=== PATIENT | female | born 1965 | race African-American/Black ===

== ENCOUNTER 2017-04-12 15:21 | Observation (INO) | payer OTHER ==
[~2017-04-12] VITALS: Ht 175.3 cm; Wt 104.0 kg
[~2017-04-12 15:21] MED LIST: BETA0.052 TOPICAL; CITA20TA4 PO; DEXAMETHASONE SOD PHOS 4 MG/ML VIAL IV PUSH ONE; FLUT50SP EACH NARE; GLYCOPYRROLATE 1 MG/5 ML SYRINGE IV PUSH ONE; LIDOCAINE HCL 1% PF 5 ML SYRINGE OTHER ONE; MEDR4PAK PO; METO25TA3 PO; MONT10TA4 PO; NEOSTIGMINE 5 MG/5 ML SYRINGE IV PUSH ONE; ONDANSETRON HCL 4 MG/2 ML VIAL IV PUSH ONE; PROPOFOL 200 MG/20 ML AMP IV ONE; ROCURONIUM INJ 50 MG/5 ML SYRINGE IV PUSH ONE; SUCCINYLCHOLINE CHLORIDE 100 MG/5 ML SYRINGE IV PUSH ONE; TOPI100 PO; ZOLP10TA3 PO
[2017-04-12 15:26] VITALS: BP 161/72; PULSE 82; TEMP 99.3; O2SAT 97
[2017-04-12] MEDS ORDERED: HYDR-3583 PO (15:47)
[2017-04-12] MEDS ORDERED: LEVO100T5 PO (15:47)
[2017-04-12] MEDS ORDERED: ONDANSETRON HCL 4 MG/2 ML VIAL IV PUSH ONE (16:45)
[2017-04-12] MEDS ORDERED: MORPHINE SULFATE 2 MG/ML INJ IV PUSH ONE ×2 (16:45→18:15)
[2017-04-12] MEDS ORDERED: IOHEXOL 350 MG/ML 10 ML VIAL (for RAD DIAG) IVCONTRAST ONE (17:05)
[2017-04-12 17:42] LABS: ALT (GPT) 20 U/L (10-53)
[2017-04-12 17:44] LABS: ALKALINE PHOSPHATASE 74 U/L (45-117); TOTAL BILIRUBIN ADULT 0.3 MG/DL (0.2-1.0); TOTAL PROTEIN 8.1 GM/DL (6.4-8.2)
[2017-04-12 17:46] LABS: ALBUMIN 3.3 GM/DL (3.4-5.0); AST (GOT) 23 U/L (15-37); BICARBONATE 22.1 MEQ/L (21.0-32.0); BLOOD UREA NITROGEN 8 MG/DL (7-18); CALCIUM 8.3 MG/DL (8.5-10.1); CHLORIDE 108 MEQ/L (98-107); CREATININE 0.71 MG/DL (0.50-1.00); GLOMERULAR FILTRATION RATE 104 ML/MIN (>89); GLUCOSE,RANDOM 85 MG/DL (74-106); LIPASE 113 U/L (73-393); SODIUM (NA) 137 MEQ/L (136-145)
--- NOTE | 2017-04-12 17:52 | RADRPT ---
EXAM DATE/TIME: 04/12/2017 17:05 [place] COMPARISON: No previous studies available for comparison. INDICATIONS : Right lower quadrant pain for two days IV CONTRAST: 81 cc Omnipaque 350 (iohexol) IV ORAL CONTRAST: No oral contrast ingested. RADIATION DOSE: 9.40 CTDIvol (mGy) MEDICAL HISTORY : Cardiovascular disease. Hypertension. Chronic obstructive pulmonary disease.Sarcoidosis SURGICAL HISTORY : None. ENCOUNTER: Initial ACUITY: 2 days PAIN SCALE: 7/10 LOCATION: Right Abdomen TECHNIQUE: Volumetric scanning of the abdomen and pelvis was performed. Using automated exposure control and ad justment of the mA and/or kV according to patient size, radiation dose was kept as low as reasonably achievable to obtain optimal diagnostic quality images. DICOM format image data is available electro nically for review and comparison. FINDINGS: CT Abdomen: The liver, spleen, pancreas, kidneys, adrenals are unremarkable. There is no evidence for any appreciable pathological adenopathy, free fluid, or bowel obstruction. Mild right lung base ate lectasis and/or infiltrate is seen. There are 3 small lymph nodes in the right cardiophrenic angle th e largest one is some xiphoid measures 1.4 cm in size most likely benign. CT pelvis: There is inflammation surrounding the appendix which is enlarged and measures almost 1.8 c m in transverse diameter without signs of perforation or abscess formation technique. CONCLUSION: 1. Acute appendicitis. 2. Mild right lung base atelectasis and/or infiltrate is seen. Yarely Baker MD on April 12, 2017 at 17:45 Board Certified Radiologist. This report was verified electronically.
[2017-04-12 17:54] LABS: AUTOMATED NEUTROPHIL # 5.5 TH/MM3 (1.8-7.7); BASOPHIL # 0.1 TH/MM3 (0-0.2); BASOPHIL % 1.1 % (0.0-2.0); EOSINOPHIL % 0.4 % (0.0-4.0); HEMATOCRIT 36.2 % (35.0-46.0); HEMOGLOBIN 12.2 GM/DL (11.6-15.3); LYMPH % 33.9 % (9.0-44.0); LYMPHOCYTE # 3.1 TH/MM3 (1.0-4.8); MEAN CELL VOLUME 89.3 FL (80.0-100.0); MEAN CORPUSCULAR HEMOGLOBIN 30.2 PG (27.0-34.0); MEAN CORPUSCULAR HGB CONC 33.8 % (32.0-36.0); MEAN PLATELET VOLUME 8.1 FL (7.0-11.0); MONOCYTE # 0.4 TH/MM3 (0-0.9); NEUT % 60.6 % (16.0-70.0); PLATELET COUNT 326 TH/MM3 (150-450); RED BLOOD COUNT 4.05 MIL/MM3 (4.00-5.30); RED CELL DISTRIBUTION WIDTH 14.2 % (11.6-17.2); WHITE BLOOD COUNT 9.1 TH/MM3 (4.0-11.0)
[2017-04-12 18:10] VITALS: BP 140/83; PULSE 73; RESP 18; O2SAT 99
[2017-04-12] MEDS ORDERED: PIPERACIL-TAZO 3.375 GM PREMIX 50 ML IV ONE (18:15)
[2017-04-12] MEDS ORDERED: BUPIVACAINE/EPINEPHRINE 0.5% 50 ML VIAL ONE (18:45)
[2017-04-12 18:49] VITALS: BP 130/61
--- NOTE | 2017-04-12 19:21 | PD ---
HPI Chief Complaint: Abdominal Pain Time Seen by Provider: 15:51 Travel History International Travel<30 days: No Contact w/Intl Traveler<30days: No Traveled to known affect area: No History of Present Illness HPI This is a 51-year-old female who presents to the emergency department with 3 days of abdominal pain and vomiting. She says 3 days ago she started to have pain in the epigastrium, constant, severe and sharp, nonradiating associated with multiple episodes of vomiting. She denies any fevers or chills. She says the pain has slowly migrated towards the right lower abdomen but she still has a lot of pain in the upper abdomen early one vomiting. She went to see her primary care doctor today who referred her to be evaluated for possible appendicitis. She's also had some loose stools. PFSH Past Medical History Asthma: No Autoimmune Disease: Yes (SARCOIDOSIS) Blood Disorders: No Heart Rhythm Problems: Yes Cancer: No Cardiac Catheterization: Yes (2005- "NO PROBLEMS") Cardiovascular Problems: Yes (tachycardia) High Cholesterol: No Chest Pain: Yes Congestive Heart Failure: No COPD: Yes Cerebrovascular Accident: No Diabetes: No Diminished Hearing: No Endocrine: No Gastrointestinal Disorders: Yes GERD: Yes Glaucoma: No Genitourinary: No Headaches: Yes Hepatitis: No Hiatal Hernia: No Hypertension: Yes Immune Disorder: No Musculoskeletal: Yes Neurologic: Yes Psychiatric: No Reproductive: No Respiratory: Yes (COPD) Migraines: Yes Myocardial Infarction: No Seizures: Yes Sleep Apnea: No Thyroid Disease: No Ulcer: No Tetanus Vaccination: > 5 Years Influenza Vaccination: No ?: Not : 4 Para: 3 Miscarriage: 1 : 0 Past Surgical History Abdominal Surgery: No AICD: No Appendectomy: No Arteriovenous Shunt: No Cardiac Surgery: Yes (CARDIAC CATH X 2) Cholecystectomy: No Ear Surgery: No Endocrine Surgery: Yes (THYROID BIOPSY -NEGATIVE 2002) Eye Surgery: No Genitourinary Surgery: No Gynecologic Surgery: Yes (TUBAL) Insulin Pump: No Joint Replacement: No Oral Surgery: No Thoracic Surgery: Yes (TRAVIS BIOPSY WITH DX OF SARCOIDOSIS) Other Surgery: Yes Social History Alcohol Use: Yes (3 X A MONTH) Tobacco Use: No Substance Use: No Allergies-Medications (Allergen,Severity, Reaction): Coded Allergies: tramadol (Unverified Allergy, Intermediate, sizesures , 04/12/17) Reported Meds & Prescriptions Reported Meds & Active Scripts Active Citalopram (Citalopram Hydrobromide) 20 Mg Tab 20 Mg PO DAILY Montelukast (Montelukast Sodium) 10 Mg Tab 10 Mg PO HS Zolpidem (Zolpidem Tartrate) 10 Mg Tab 10 Mg PO HS PRN Metoprolol Tartrate 25 Mg Tab 25 Mg PO DAILY Topamax (Topiramate) 100 Mg Tab 100 Mg PO BID Betamethasone Dipropionate Topical 0.05% Cream 1 Applic TOPICAL BID Apply once daily; may increase to twice daily if needed Medrol Dosepak (Methylprednisolone) 4 Mg Dspk 4 Mg PO DIRECTED Per Pharmacist direction Fluticasone Nasal [place] 50 Mcg/Act Naspr 50 Mcg EACH NARE BID 2 sprays per nostril once per day for one week, then 1 spray per nostril daily. Reported Hydrocodone-Acetaminophen 10-325 mg Tab 1 Tab PO Q6H PRN Levothyroxine (Levothyroxine Sodium) 100 Mcg Tab 100 Mcg PO DAILY Review of Systems Except as stated in HPI: all other systems reviewed are Neg Physical Exam Narrative GENERAL:Well appearing, no acute distress SKIN: Focused skin assessment warm and dry. HEAD: Atraumatic. Normocephalic. EYES: Pupils equal and round. No injection or drainage. ENT: Moist mucous membranes NECK: Trachea midline. CARDIOVASCULAR: Regular rate and rhythm. No murmur appreciated. RESPIRATORY: Clear to auscultation. Breath sounds equal bilaterally. GASTROINTESTINAL: Abdomen soft, tender to palpation in the right lower quadrant with guarding, tender to palpation in the epigastrium with no rebound or guarding MUSCULOSKELETAL: No obvious deformities. NEUROLOGICAL: Awake and alert. No obvious cranial nerve deficits. Moving all extremities. PSYCHIATRIC: Appropriate mood and affect; insight and judgment normal. Data Data Last Documented VS Vital Signs Date Time Temp Pulse Resp B/P (MAP) Pulse Ox O2 Delivery O2 Flow Rate FiO2 04/12/17 18:10 73 18 140/83 (102) 99 Room Air 04/12/17 15:26 99.3 Orders Orders Complete Blood Count With Diff (04/12/17 16:42) Comprehensive Metabolic Panel (04/12/17 16:42) ^ Insert Iv (04/12/17 16:42) Lipase (04/12/17 16:42) Ct Abd/Pel W Iv Contrast(Rout) (04/12/17 ) Ondansetron Inj (Zofran Inj) (04/12/17 16:45) Morphine Inj (Morphine Inj) (04/12/17 16:45) Morphine Inj (Morphine Inj) (04/12/17 18:15) Piperacil-Tazo 3.375 Gm Premix (Zosyn 3. (04/12/17 18:15) Admit Order (Ed Use Only) (04/12/17 18:13) Labs Laboratory Tests Test 04/12/17 16:45 04/12/17 17:40 Blood Urea Nitrogen 8 MG/DL Creatinine 0.71 MG/DL Random Glucose 85 MG/DL Total Protein 8.1 GM/DL Albumin 3.3 GM/DL Calcium Level 8.3 MG/DL Alkaline Phosphatase 74 U/L Aspartate Amino Transf (AST/SGOT) 23 U/L Alanine Aminotransferase (ALT/SGPT) 20 U/L Total Bilirubin 0.3 MG/DL Sodium Level 137 MEQ/L Potassium Level 4.0 MEQ/L Chloride Level 108 MEQ/L Carbon Dioxide Level 22.1 MEQ/L Anion Gap 7 MEQ/L Estimat Glomerular Filtration Rate 104 ML/MIN Lipase 113 U/L White Blood Count 9.1 TH/MM3 Red Blood Count 4.05 MIL/MM3 Hemoglobin 12.2 GM/DL Hematocrit 36.2 % Mean Corpuscular Volume 89.3 FL Mean Corpuscular Hemoglobin 30.2 PG Mean Corpuscular Hemoglobin Concent 33.8 % Red Cell Distribution Width 14.2 % Platelet Count 326 TH/MM3 Mean Platelet Volume 8.1 FL Neutrophils (%) (Auto) 60.6 % Lymphocytes (%) (Auto) 33.9 % Monocytes (%) (Auto) 4.0 % Eosinophils (%) (Auto) 0.4 % Basophils (%) (Auto) 1.1 % Neutrophils # (Auto) 5.5 TH/MM3 Lymphocytes # (Auto) 3.1 TH/MM3 Monocytes # (Auto) 0.4 TH/MM3 Eosinophils # (Auto) 0.0 TH/MM3 Basophils # (Auto) 0.1 TH/MM3 CBC Comment DIFF FINAL Differential Comment MDM Medical Decision Making Medical Screen Exam Complete: Yes Emergency Medical Condition: Yes Interpretation(s) No leukocytosis Electrolytes are reassuring CT demonstrates acute appendicitis Differential Diagnosis Appendicitis, colitis, diverticulitis, gastroenteritis Narrative Course This is a 51-year-old female who presents to the emergency department with abdominal pain that migrated to the right lower quadrant associated with vomiting. She was placed on a monitor and an IV was established. Labs are reassuring. CT abdomen and pelvis demonstrates acute appendicitis. Patient was given a dose of IV Zosyn in the emergency department. I discussed patient with Dr. barry who will take the patient to surgery. Physician Communication Physician Communication Discussed with Dr. barry Diagnosis Primary Impression: Acute appendicitis Qualified Codes: K35.3 - Acute appendicitis with localized peritonitis Admitting Information Admitting Physician Requests: Observation Esther Bower MD Apr 12, 2017 19:21
[2017-04-12 20:30] VITALS: BP 140/84; PULSE 74; PULSE 77; RESP 16; TEMP 98.6; O2SAT 99
[2017-04-12] MEDS ORDERED: MORPHINE SULFATE 4 MG/ML INJ IV PUSH ONE (20:30)
[2017-04-12] MEDS ORDERED: fentaNYL CITRATE 250 MCG/5 ML AMP ONE (21:10)
[2017-04-12] MEDS ORDERED: SUGAMMADEX SODIUM 200 MG/2 ML VIAL IV PUSH ONE (22:36)
--- NOTE | 2017-04-12 22:37 | HHI.HP ---
General Surgery H&P The patient is a 51-year-old lady who began having abdominal pain associated with nausea and vomiting on Monday approximate 48 hours ago. She had several episodes of emesis and the abdominal pain was extremely severe. The pain continued into Monday but the nausea and vomiting subsided. The pain was worse over the next 24 hours leading into today. She had increasing pain when walking and eventually came to her physician who recommended a CT scan through the emergency department. She was then at that time found to have acute appendicitis. Past medical history: Patient has a history of sarcoidosis, Matthieu's thyroiditis, tachycardia, COPD, and seizure disorder. Past surgical history: Patient is had a previous tubal ligation, lung biopsy, and thyroidectomy. Family history, social history, and review of systems are negative except as indicated in her chart. Medications include: Citalopram (Citalopram Hydrobromide) 20 Mg Tab 20 Mg PO DAILY Montelukast (Montelukast Sodium) 10 Mg Tab 10 Mg PO HS Zolpidem (Zolpidem Tartrate) 10 Mg Tab 10 Mg PO HS PRN Metoprolol Tartrate 25 Mg Tab 25 Mg PO DAILY Topamax (Topiramate) 100 Mg Tab 100 Mg PO BID Betamethasone Dipropionate Topical 0.05% Cream 1 Applic TOPICAL BID Apply once daily; may increase to twice daily if needed Medrol Dosepak (Methylprednisolone) 4 Mg Dspk 4 Mg PO DIRECTED Per Pharmacist direction Fluticasone Nasal [place] 50 Mcg/Act Naspr 50 Mcg EACH NARE BID 2 sprays per nostril once per day for one week, then 1 spray per nostril daily. Hydrocodone-Acetaminophen 10-325 mg Tab 1 Tab PO Q6H PRN Levothyroxine (Levothyroxine Sodium) 100 Mcg Tab 100 Mcg PO DAILY She has no known drug allergies but is unable to take tramadol due to the possibility of seizures. Vital Signs Date Time Temp Pulse Resp B/P (MAP) Pulse Ox O2 Delivery O2 Flow Rate FiO2 04/12/17 20:30 98.3 77 16 131/70 (90) 97 04/12/17 20:30 77 04/12/17 20:30 98.6 74 16 140/84 (102) 99 Room Air 04/12/17 18:49 86 16 130/61 (84) 98 04/12/17 18:10 73 18 140/83 (102) 99 Room Air 04/12/17 15:43 18 04/12/17 15:26 99.3 82 161/72 (101) 97 Room Air HEENT: Unremarkable with no lesions inflammation, or scleral icterus. LUNGS: Clear to percussion auscultation HEART: Regular rate and rhythm ABDOMEN: Exquisitely tender in the right lower quadrant with voluntary guarding and percussive rebound located only in the right lower quadrant. The remainder of her abdominal exam is benign. EXTREMITIES: No cyanosis clubbing or edema. Peripheral pulses are 1-2+ and equal bilaterally. NEURO: Patient is awake and alert and oriented 3. There are no gross neurologic deficits. Laboratory Tests Test 04/12/17 16:45 04/12/17 17:40 Blood Urea Nitrogen 8 MG/DL Creatinine 0.71 MG/DL Random Glucose 85 MG/DL Total Protein 8.1 GM/DL Albumin 3.3 GM/DL Calcium Level 8.3 MG/DL Alkaline Phosphatase 74 U/L Aspartate Amino Transf (AST/SGOT) 23 U/L Alanine Aminotransferase (ALT/SGPT) 20 U/L Total Bilirubin 0.3 MG/DL Sodium Level 137 MEQ/L Potassium Level 4.0 MEQ/L Chloride Level 108 MEQ/L Carbon Dioxide Level 22.1 MEQ/L Anion Gap 7 MEQ/L Estimat Glomerular Filtration Rate 104 ML/MIN Lipase 113 U/L White Blood Count 9.1 TH/MM3 Red Blood Count 4.05 MIL/MM3 Hemoglobin 12.2 GM/DL Hematocrit 36.2 % Mean Corpuscular Volume 89.3 FL Mean Corpuscular Hemoglobin 30.2 PG Mean Corpuscular Hemoglobin Concent 33.8 % Red Cell Distribution Width 14.2 % Platelet Count 326 TH/MM3 Mean Platelet Volume 8.1 FL Neutrophils (%) (Auto) 60.6 % Lymphocytes (%) (Auto) 33.9 % Monocytes (%) (Auto) 4.0 % Eosinophils (%) (Auto) 0.4 % Basophils (%) (Auto) 1.1 % Neutrophils # (Auto) 5.5 TH/MM3 Lymphocytes # (Auto) 3.1 TH/MM3 Monocytes # (Auto) 0.4 TH/MM3 Eosinophils # (Auto) 0.0 TH/MM3 Basophils # (Auto) 0.1 TH/MM3 CBC Comment DIFF FINAL Differential Comment Last 72 hours Impressions Abdomen/Pelvis CT 04/12/17 0000 Signed Impressions: Service Date/Time: Wednesday, April 12, 2017 17:05 - CONCLUSION: 1. Acute appendicitis. 2. Mild right lung base atelectasis and/or infiltrate is seen. Yarely Baker MD Impression: Acute appendicitis Plan: Laparoscopic appendectomy. I explained the procedure to include the risks of bleeding, infection, need for reoperation, need for open operation. She understands and is agreeable to the procedure. Bin Wynn MD Apr 12, 2017 22:37
--- NOTE | 2017-04-12 22:42 | PD.OP ---
cc: Bin Wynn MD Operative Report Date of Surgery: Apr 12, 2017 Preoperative Diagnosis: Acute appendicitis Postoperative Diagnosis: Acute appendicitis Procedure: Laparoscopic appendectomy Anesthesia: Gen. endotracheal Surgeon: Bin Wynn Farm Equipment Technician(s): None Operation and Findings: Operative findings: The patient was found to have a tortuous appendix which was located lateral to the cecum in the mid abdomen. It was nonperforated and there was no evidence of gross contamination. There was grossly distended at its tip with the base being relatively normal. No other abnormalities were noted other than adhesions between the anterior surface the liver and the right anterior abdominal wall. Operative procedure: The patient was brought to the operating room after satisfactory general endotracheal anesthesia obtained, the abdomen was prepped and draped in usual sterile fashion. 0.5% Marcaine with epinephrine was used to infiltrate the skin for local anesthesia. Small incision was made above the umbilicus and a 5 mm trochars inserted directly into the peritoneal cavity under visualization. The abdomen was then distended to 15 mmHg using carbon dioxide. The camera was reinserted and visceral injury inspected for, with none being identified. Under direct visualization a 12 port was placed in the suprapubic region and another 5 port in the in the midline between the 2 previous ports. The patient was rotated the left lateral decubitus position as much as possible and the appendix was identified and grasped with an Endo Jorge L. It was elevated into the wound and the mesoappendix was taken down with the Harmonic scalpel. Once the base of the appendix and been cleared it was stapled with a 45 white load stapler and placed within an Endo Catch bag, then removed without incident. The staple line was inspected and found to be intact. Hemostasis was checked for and found be quite satisfactory. The area was irrigated with saline and again the appendiceal stump and hemostasis was checked for and found be satisfactory. The carbon dioxide was then vented as completely as possible the atmosphere after which the ports were removed and the skin closed with interrupted 4-0 PDS subcutaneous stitches. Steri-Strips were applied and the patient was then awakened and taken from the operating room , satisfactory condition, having tolerated procedure without problem. Estimated blood loss was less than 10 mL's. The instrument, sponge, needle counts reported as being correct 2 at the end of procedure. Bin Wynn MD Apr 12, 2017 22:42
[2017-04-12] MEDS ORDERED: *morphine SULFATE 8 MG/ML PERIprocedure ONLY ONE (23:04)
[2017-04-12] MEDS ORDERED: MORPHINE SULFATE 2 MG/ML INJ IV PRN ×2 (23:15)
[2017-04-12] MEDS ORDERED: ONDANSETRON HCL 4 MG/2 ML VIAL IV PUSH PRN (23:15)
[2017-04-12] MEDS ORDERED: oxyCODONE/ACETAMINOPHEN 5 MG/325 MG TAB PO PRN (23:15)
[2017-04-12] MEDS ORDERED: KETOROLAC TROMETHAMINE 30 MG/ML (IVP) VIAL IV PUSH ONE (23:15)
[2017-04-12] MEDS ORDERED: DO NOT ADM ANY ANTICOAGULANT DRUGS PRN (23:15)
[2017-04-13] MEDS: oxyCODONE/ACETAMINOPHEN 5 MG/325 MG TAB PO PRN ×4 (00:02→14:55)
[2017-04-13 00:15] VITALS: BP 110/55; PULSE 70; RESP 17; TEMP 98.8; O2SAT 95
[2017-04-13] MEDS ORDERED: ZOLPIDEM TARTRATE 10 MG TAB PO PRN (01:15)
[2017-04-13] MEDS: TOPIRAMATE 100 MG TAB PO SCH ×2 (04:19→18:47)
[2017-04-13 04:36] VITALS: BP 117/59; PULSE 82; RESP 17; TEMP 96.6; O2SAT 95
[2017-04-13] MEDS ORDERED: LEVOTHYROXINE SODIUM 100 MCG TAB PO SCH (06:00)
[2017-04-13 08:00] VITALS: BP 114/61; PULSE 72; RESP 17; TEMP 97.4; O2SAT 96
[2017-04-13] MEDS ORDERED: CITALOPRAM HYDROBROMIDE 20 MG TAB PO SCH (09:00)
[2017-04-13] MEDS ORDERED: METOPROLOL TARTRATE 25 MG TAB PO SCH (09:00)
[2017-04-13 12:00] VITALS: BP 111/53; PULSE 70; RESP 17; TEMP 97; O2SAT 95
[2017-04-13 16:57] VITALS: BP 132/65; PULSE 74; RESP 17; TEMP 96.1; O2SAT 98
[2017-04-13] MEDS ORDERED: KETO10 PO (18:58)
[2017-04-13 23:38] VITALS: BP 156/83; PULSE 100; RESP 22; TEMP 96.5; O2SAT 97
--- NOTE | 2017-04-14 23:35 | EKG ---
Date Performed: 04/12/2017 Time Performed: 20:37:58 PTAGE: 51 years EKG: Sinus rhythm RIGHT BUNDLE BRANCH BLOCK ABNORMAL ECG PREVIOUS TRACING : 07/07/2013 11.55 DOCTOR: Victorino Camarena Interpretating Date/Time 04/14/2017 23:33:16
== END 2017-04-13 19:20 | disposition home or self-care (01) ==
LOC: NEPE 15:21 → NEDA 18:15 → N07B 20:40 → N07A 23:43
PROVIDERS: ADMIT Surgery; ATTEND Surgery
DX: K35.3 Acute appendicitis with localized peritonitis (principal); D86.9 Sarcoidosis, unspecified; R00.0 Tachycardia, unspecified; J44.9 Chronic obstructive pulmonary disease, unspecified; K21.9 Gastro-esophageal reflux disease without esophagitis; I10 Essential (primary) hypertension; Z79.899 Other long term (current) drug therapy; J98.11 Atelectasis
CPT/HCPCS: 00840; 44970; 74177; 80053; 83690; 85025; 88304; 93005; 96374; 96375; 96376; 99285; G0378; J0330; J1100; J2270; J2405; J2543; J2710; J3010; Q9967

== ENCOUNTER 2018-05-27 07:30 | Observation (INO) ==
--- NOTE | 2018-05-27 08:47 | ED ---
HPI General Chief Complaint: Chest Pain Stated Complaint: Chest Pain Time Seen by Provider: 05/27/18 08:32 Source: patient Mode of arrival: ambulatory Limitations: no limitations History of Present Illness HPI narrative: 52-year-old female complains of chest pain. Patient states that the pain started 4 days ago. Patient stated pain is substernal pressure pain with radiation to left-sided face and left shoulder. Patient denies palpitations. Patient states that she has intermittent nausea. Patient denies diaphoresis. Patient states that she has some mild shortness of breath with the chest pain. Patient states that pain is not associate with exertion. Patient states that she has mild swelling of the ankle and feet recently. Patient states that she has mild aching headache. Patient denies history hypertension, diabetes or hyperlipidemia. Patient is a former smoker. Patient has family history of heart disease. Patient has history of depression, tachycardia, COPD and hypothyroidism. MD complaint: Reports chest pain STEMI Alert: No Onset (ago): day(s) Duration: constant Onset: during rest Pain location: Reports substernal Severity: mild Severity scale (1-10): 5 Quality: Reports tightness and aching Pain radiation: Reports LUE and jaw/teeth Relieving factors: nothing Exacerbating factors: nothing Associated symptoms: Reports nausea and dyspnea Related Data Home Medications Medication Instructions Recorded Confirmed albuterol sulfate [Ventolin HFA] 2 puff INHALATION Q6H PRN 05/27/18 05/27/18 citalopram 20 mg PO DAILY 05/27/18 05/27/18 levothyroxine 88 mcg PO DAILY 05/27/18 05/27/18 liothyronine 5 mcg PO DAILY 05/27/18 05/27/18 metoprolol tartrate 25 mg PO DAILY 05/27/18 05/27/18 salmeterol 1 inh INHALATION BID 05/27/18 05/27/18 topiramate 50 mg PO BID 05/27/18 05/27/18 Allergies Allergy/AdvReac Type Severity Reaction Status Date / Time tramadol Allergy Intermediate Seizures Verified 05/27/18 09:28 Review of Systems ROS: all other systems reviewed are negative [facility] Medical History Medical History COPD (chronic obstructive pulmonary disease) (Acute) Chronic back pain (Acute) Depression (Acute) Herniated disc (Acute) Hypothyroidism (Acute) Tachycardia (Acute) Surgical History Surgical History H/O thyroidectomy (Acute) Hx of appendectomy (Acute) Social History Social History Substance History: No History of Abuse Second Hand Smoke Exposure: No Smoking Status: Former smoker How Often Do You Have a Drink Containing Alcohol: Never Recent Travel in [facility] within the Last 8 Weeks: No Recent Out of Country Travel within the Last 8 Weeks: No Immunization History Tetanus Immunization: Unsure Exam Narrative Exam Narrative: GENERAL: Well-nourished, well-developed patient. SKIN: Focused skin assessment warm/dry. HEAD: Normocephalic. EYES: No scleral icterus. No injection or drainage. NECK: Supple, trachea midline. No JVD or lymphadenopathy. CARDIOVASCULAR: Regular rate and rhythm without murmurs, gallops, or rubs. RESPIRATORY: Breath sounds equal bilaterally. No accessory muscle use. GASTROINTESTINAL: Abdomen soft, non-tender, nondistended. MUSCULOSKELETAL: No cyanosis, or edema. BACK: Nontender without obvious deformity. No CVA tenderness. Neurologic exam normal. Course Initial Documented Vital Signs Temperature 98.2 F 05/27/18 07:32 Pulse Rate 85 05/27/18 07:32 Respiratory Rate 17 05/27/18 07:32 Blood Pressure 166/102 H 05/27/18 07:32 Pulse Oximetry 98 05/27/18 07:32 Last Documented Vital Signs Temperature 98.2 F 05/27/18 07:32 Pulse Rate 73 05/27/18 08:00 Respiratory Rate 16 05/27/18 08:00 Blood Pressure 159/70 H 05/27/18 08:00 Pulse Oximetry 98 05/27/18 08:45 Medical Decision Making MDM Narrative Medical decision making narrative: 52-year-old female with chest pain. Patient will be admitted to chest pain center. Medical Screen Exam Complete: Yes Emergency Medical Condition: Yes Differential Diagnosis Differential Diagnosis: Differential diagnosis including musculoskeletal, angina , CO, PE, pneumothorax, GERD. Lab Data Lab results reviewed: Yes I reviewed the patient's lab results. Result diagrams: 05/27/18 08:00 05/27/18 08:00 Lab Results 02/17/19 02/17/19 02/17/19 Range/Units 08:00 08:00 08:00 WBC 6.7 (4.0-11.0) th/mm3 RBC 4.51 (4.00-5.30) mil/mm3 Hgb 13.2 (11.6-15.3) gm/dL Hct 40.5 (35.0-46.0) % MCV 89.7 (80.0-100.0) fL MCH 29.4 (27.0-34.0) pg MCHC 32.7 (32.0-36.0) % RDW 14.2 (11.6-17.2) % Plt Count 300 (150-450) th/mm3 MPV 8.3 (7.0-11.0) fL Neut % (Auto) 56.8 (16.0-70.0) % Lymph % (Auto) 37.5 (9.0-44.0) % [place] % (Auto) 3.8 (0.0-8.0) % Eos % (Auto) 0.9 (0.0-4.0) % Baso % (Auto) 1.0 (0.0-2.0) % Neut # (Auto) 3.8 (1.8-7.7) th/mm3 Lymph # (Auto) 2.5 (1.0-4.8) th/mm3 [place] # (Auto) 0.3 (0.0-0.9) th/mm3 Eos # (Auto) 0.1 (0.0-0.4) th/mm3 Baso # (Auto) 0.1 (0.0-0.2) th/mm3 WBC Differential . Differential Comment Auto diff final Sodium 142 (136-145) meq/L Potassium 4.2 (3.5-5.1) meq/L Chloride 110 H (98-107) meq/L Carbon Dioxide 24.7 (21.0-32.0) meq/L Anion Gap 7 (5-15) meq/L BUN 8 (7-18) mg/dL Creatinine 0.76 (0.50-1.00) mg/dL Estimated GFR Greater than 89 (>89) mL/min Random Glucose 89 (74-106) mg/dL Calcium 8.3 L (8.5-10.1) mg/dL Total Bilirubin 0.2 (0.2-1.0) mg/dL AST 15 (15-37) U/L ALT 23 (10-53) U/L Alkaline Phosphatase 99 (45-117) U/L Total Creatine Kinase (26-192) U/L Troponin I Less than 0.02 L (0.02-0.05) ng/mL B-Natriuretic Peptide 21 (0-100) pg/mL Total Protein 8.3 H (6.4-8.2) g/dL Albumin 3.5 (3.4-5.0) g/dL Lipase 109 (73-393) U/L 05/27/18 Range/Units 08:00 WBC (4.0-11.0) th/mm3 RBC (4.00-5.30) mil/mm3 Hgb (11.6-15.3) gm/dL Hct (35.0-46.0) % MCV (80.0-100.0) fL MCH (27.0-34.0) pg MCHC (32.0-36.0) % RDW (11.6-17.2) % Plt Count (150-450) th/mm3 MPV (7.0-11.0) fL Neut % (Auto) (16.0-70.0) % Lymph % (Auto) (9.0-44.0) % [place] % (Auto) (0.0-8.0) % Eos % (Auto) (0.0-4.0) % Baso % (Auto) (0.0-2.0) % Neut # (Auto) (1.8-7.7) th/mm3 Lymph # (Auto) (1.0-4.8) th/mm3 [place] # (Auto) (0.0-0.9) th/mm3 Eos # (Auto) (0.0-0.4) th/mm3 Baso # (Auto) (0.0-0.2) th/mm3 WBC Differential Differential Comment Sodium (136-145) meq/L Potassium (3.5-5.1) meq/L Chloride (98-107) meq/L Carbon Dioxide (21.0-32.0) meq/L Anion Gap (5-15) meq/L BUN (7-18) mg/dL Creatinine (0.50-1.00) mg/dL Estimated GFR (>89) mL/min Random Glucose (74-106) mg/dL Calcium (8.5-10.1) mg/dL Total Bilirubin (0.2-1.0) mg/dL AST (15-37) U/L ALT (10-53) U/L Alkaline Phosphatase (45-117) U/L Total Creatine Kinase 102 (26-192) U/L Troponin I (0.02-0.05) ng/mL B-Natriuretic Peptide (0-100) pg/mL Total Protein (6.4-8.2) g/dL Albumin (3.4-5.0) g/dL Lipase (73-393) U/L Imaging Data Attestation: I personally reviewed and interpreted this imaging study as follows : Radiologist's impression: Chest X-Ray 05/27/18 08:40 CONCLUSION: No acute cardiopulmonary disease Discharge Plan Discharge Disposition Patient Disposition: ED Admit(ED Internal Use Only) Discharge Details Diagnosis: Chest pain Physicians Team ED Provider: Gaurang Sterling Primary Care Provider: UNKNOWN, Rxs /Orders / Referrals /Forms Prescriptions: No Action liothyronine 5 mcg Tablet 5 mcg PO DAILY RF: 0 levothyroxine 88 mcg Tablet 88 mcg PO DAILY RF: 0 citalopram 20 mg Tablet 20 mg PO DAILY RF: 0 salmeterol 50 mcg/dose Blister With Device 1 inh INHALATION BID RF: 0 albuterol sulfate [Ventolin HFA] 90 mcg/actuation Hfa Aerosol Inhaler 2 puff INHALATION Q6H PRN (Reason: Dyspnea) RF: 0 metoprolol tartrate 25 mg Tablet 25 mg PO DAILY RF: 0 topiramate 50 mg Tablet 50 mg PO BID RF: 0 Discharge Instructions Patient Printed Instructions: Chest Pain (ED) Discharge Interventions Interventions: Vital Signs Last Done: 05/27/18 08:00 Status ED Status: With Doctor
[2018-05-27 08:58] LABS: Baso # (Auto) 0.1 th/mm3 (0.0-0.2); Eos # (Auto) 0.1 th/mm3 (0.0-0.4); Eos % (Auto) 0.9 % (0.0-4.0); Hematocrit 40.5 % (35.0-46.0); Hemoglobin 13.2 gm/dL (11.6-15.3); Lymph # (Auto) 2.5 th/mm3 (1.0-4.8); Lymph % (Auto) 37.5 % (9.0-44.0); Mean Corpuscular HGB Conc 32.7 % (32.0-36.0); Mean Corpuscular Hemoglobin 29.4 pg (27.0-34.0); Mean Corpuscular Volume 89.7 fL (80.0-100.0); Mean Platelet Volume 8.3 fL (7.0-11.0); Mono # (Auto) 0.3 th/mm3 (0.0-0.9); Mono % (Auto) 3.8 % (0.0-8.0); Neut # (Auto) 3.8 th/mm3 (1.8-7.7); Neut % (Auto) 56.8 % (16.0-70.0); Platelet Count 300 th/mm3 (150-450); Red Blood Count 4.51 mil/mm3 (4.00-5.30); Red Cell Distribution Width 14.2 % (11.6-17.2); White Blood Count 6.7 th/mm3 (4.0-11.0)
--- NOTE | 2018-05-27 09:00 | XR ---
EXAM DATE: 05/27/2018 8:57 AM EST AGE/SEX: 52 years / Female INDICATIONS: Chest pain. CLINICAL DATA: This is the patient's initial encounter. Patient reports that signs and symptoms have been present for 4 - 6 days and indicates a pain score of 5/10. MEDICAL/SURGICAL HISTORY: Myocardial infarction. . Cardiac cath 2009. COMPARISON: [facility] – [place], CHEST PA & LAT, 03/14/2016. . FINDINGS: A single AP view of the chest demonstrates the lungs to be symmetrically aerated without evidence of mass, infiltrate or effusion. The cardiomediastinal contours are unremarkable. Osseous structures a re intact. CONCLUSION: No acute cardiopulmonary disease Electronically signed by: Arcenio Carlson MD Board Certified Radiologist 05/27/2018 8:59 AM EST
[2018-05-27 09:10] LABS: Alanine Aminotransferase 23 U/L (10-53); Albumin 3.5 g/dL (3.4-5.0); Anion Gap 7 meq/L (5-15); Aspartate Aminotransferase 15 U/L (15-37); Blood Urea Nitrogen 8 mg/dL (7-18); Calcium 8.3 mg/dL (8.5-10.1); Carbon Dioxide 24.7 meq/L (21.0-32.0); Chloride 110 meq/L (98-107); Glomerular Filtration Rate Greater Than 89 mL/min (>89); Glucose,Random 89 mg/dL (74-106); Lipase 109 U/L (73-393); Potassium 4.2 meq/L (3.5-5.1); Sodium 142 meq/L (136-145)
[2018-05-27 09:13] LABS: Creatine Kinase 102 U/L (26-192)
[2018-05-27 09:16] LABS: Alkaline Phosphatase 99 U/L (45-117); Total Protein 8.3 g/dL (6.4-8.2)
[2018-05-27] MEDS ORDERED: Acetaminophen 500 MG Tablet PO PRN ×2 (09:39→11:47)
--- NOTE | 2018-05-27 10:52 | P.HPCA ---
History of Present Illness Primary Care Physician: UNKNOWN Chief Complaint: Chest pain History of Present Illness: This is a 52-year-old female without history of hypertension, hyperlipidemia, diabetes, CAD that presents to ED via private vehicle at the origins of 1 of her friends to be evaluated for chest discomfort. She states she has had 4 days of constant chest pain that she points to the center of her chest to indicate where the pain is at. She has been short of breath with this however she also states that she chronically short of breath and has COPD. Shortness of breath might be a little worse than usual. She also states she was at times nauseous but also just unusual. States she has frequent nausea and her colleagues at work joke around with her all the time because she complains of nausea so often. States she has had this evaluated and has found no reason for the nausea. Nothing to worsen or improve the chest discomfort. The worst level is a 10 out of 10. Currently discomfort is a 6 out of 10. The discomfort does not radiate. She states she has had a stress test in the past but has been years ago. Upon reviewing records, she had a nonischemic Anirudh protocol ETT in 2005. Past medical history: Hypothyroidism, tachycardia, COPD, seizure disorder, chronic back pain. Denies hypertension, diabetes, hyperlipidemia, and CAD. Family history: She denies family history of CAD. Social history: Patient quit smoking 9 years ago but prior to that she smoked about a pack of cigarettes a day for 27 years. Denies alcohol or illicit drug use. - Diagnosis (1) Chest pain Review of Systems General: Patient denies fevers, chills, and recent travel. HEENT: Patient denies headache, sore throat, difficulty swallowing. Cardiovascular: Has the chest discomfort as mentioned above. Denies sensation of heart beating rapidly or irregularly. No syncope. Respiratory: Chronically short of breath however thinks it may be a little worse over the last couple days. Denies inspirational chest discomfort. Denies coughing wheezing or hemoptysis. GI: Chronic nausea. Patient denies vomiting, diarrhea, abdominal pain, bloody stools. Musculoskeletal: Chronic back pain. Patient denies joint pain or edema. Denies calf pain or edema. Neurovascular: Patient denies numbness, tingling, weakness in extremities. Denies headache. Endocrine: Denies polyuria and polydipsia. Hematologic: Denies easy bruising. Skin: Denies rash or itching. PMFSH - History History Provided By: Patient, Family Member - Medical History Medical History: Medical History (Last Reviewed 05/27/18 @ 08:46 by Gaurang Sterling MD) COPD (chronic obstructive pulmonary disease) Chronic back pain Depression Herniated disc Hypothyroidism Tachycardia - Surgical History Surgical History: Surgical History (Last Reviewed 05/27/18 @ 08:46 by Gaurang Sterling MD) H/O thyroidectomy Hx of appendectomy - Tobacco History Second Hand Smoke Exposure: No Tobacco Use In Past 30 Days: No Smoking Status: Former smoker - Alcohol History How Often Do You Have a Drink Containing Alcohol: Never - Substance Use History Substance History: No History of Abuse - Travel History Recent Travel in the [place] Within the Last 8 Weeks: No Recent Travel Out of the Country Within the Last 8 Weeks: No - Immunization History Tetanus Immunization: Unsure Medications and Allergies Active Medications: Active Medications Acetaminophen (Tylenol) 500 mg PO Q4H PRN PRN Reason: HEADACHE Ondansetron HCl (Zofran Inj) 4 mg IV.PUSH Q6H PRN PRN Reason: NAUSEA Pantoprazole Sodium (Protonix) 40 mg PO DAILY FELIX Sodium Chloride (Ns Flush) 2 ml IV.FLUSH BID FELIX Sodium Chloride (Ns Flush) 2 ml IV.FLUSH PRN PRN PRN Reason: FLUSH AFTER USING IV ACCESS Allergies Allergy/AdvReac Type Severity Reaction Status Date / Time tramadol Allergy Intermediate Seizures Verified 05/27/18 09:28 Home Medications Medication Instructions Recorded Confirmed Type albuterol sulfate [Ventolin HFA] 2 puff INHALATION Q6H PRN 05/27/18 05/27/18 History citalopram 20 mg PO DAILY 05/27/18 05/27/18 History levothyroxine 88 mcg PO DAILY 05/27/18 05/27/18 History liothyronine 5 mcg PO DAILY 05/27/18 05/27/18 History metoprolol tartrate 25 mg PO DAILY 05/27/18 05/27/18 History salmeterol 1 inh INHALATION BID 05/27/18 05/27/18 History topiramate 50 mg PO BID 05/27/18 05/27/18 History Exam Vital signs: Vital Signs 05/27/18 07:32 05/27/18 07:41 05/27/18 08:00 Temperature 98.2 F Pulse Rate 85 80 73 Respiratory Rate 17 25 H 16 Blood Pressure 166/102 H 175/79 H 159/70 H Pulse Oximetry 98 97 98 05/27/18 08:45 05/27/18 09:00 Temperature Pulse Rate 73 Respiratory Rate 15 Blood Pressure 139/61 Pulse Oximetry 98 98 Intake & Output 05/26/18 05/27/18 05/27/18 18:59 06:59 18:59 Weight 107.048 kg Narrative: GENERAL: This is a well-nourished, well-developed patient, in no apparent distress. Patient speaks in clear complete sentences. Patient is pleasant. HEENT: Head is atraumatic and normocephalic. Neck is supple without lymphadenopathy and trachea is midline. No JVD or carotid bruits. CARDIOVASCULAR: Regular rate and rhythm without murmurs, gallops, or rubs. RESPIRATORY: Clear to auscultation. Breath sounds equal bilaterally. No wheezes , rales, or rhonchi. Chest wall is tender in the same area that has been bothering her. No use of accessory muscles. GASTROINTESTINAL: Abdomen is nontender, nondistended. Abdomen soft. No obvious pulsatile mass or bruit. No CVA tenderness. Strong femoral pulses bilaterally. Normal bowel sounds in all quadrants. MUSCULOSKELETAL: Patient is moving upper and lower extremities freely. No calf tenderness or edema, no Homans sign. Strong pulses in upper and lower extremities. NEUROLOGICAL: Patient is alert and oriented. Cranial nerves 2-12 are grossly intact. No focal deficits and speech is clear. SKIN: No rash and turgor is normal. Results 05/27/18 08:00 05/27/18 08:00 Cardiac Enzymes 05/27/18 05/27/18 05/27/18 Range/Units 08:00 08:00 08:00 AST 15 (15-37) U/L CK-MB (CK-2) Less than 1.0 (0.5-3.6) ng/mL Troponin I Less than 0.02 L (0.02-0.05) ng/mL B-Natriuretic Peptide 21 (0-100) pg/mL Coagulation 05/27/18 Range/Units 08:00 B-Natriuretic Peptide 21 (0-100) pg/mL CBC 05/27/18 Range/Units 08:00 WBC 6.7 (4.0-11.0) th/mm3 RBC 4.51 (4.00-5.30) mil/mm3 Hgb 13.2 (11.6-15.3) gm/dL Hct 40.5 (35.0-46.0) % Plt Count 300 (150-450) th/mm3 Neut # (Auto) 3.8 (1.8-7.7) th/mm3 Lymph # (Auto) 2.5 (1.0-4.8) th/mm3 [place] # (Auto) 0.3 (0.0-0.9) th/mm3 Eos # (Auto) 0.1 (0.0-0.4) th/mm3 Baso # (Auto) 0.1 (0.0-0.2) th/mm3 Comprehensive Metabolic Panel 05/27/18 Range/Units 08:00 Sodium 142 (136-145) meq/L Potassium 4.2 (3.5-5.1) meq/L Chloride 110 H (98-107) meq/L Carbon Dioxide 24.7 (21.0-32.0) meq/L BUN 8 (7-18) mg/dL Creatinine 0.76 (0.50-1.00) mg/dL Calcium 8.3 L (8.5-10.1) mg/dL AST 15 (15-37) U/L ALT 23 (10-53) U/L Alkaline Phosphatase 99 (45-117) U/L Total Protein 8.3 H (6.4-8.2) g/dL Albumin 3.5 (3.4-5.0) g/dL Intake and Output 05/26/18 05/27/18 05/27/18 22:59 06:59 14:59 Other: Weight 107.048 kg Patient Weight 05/28/18 06:59 Weight 107.048 kg - Imaging and Cardiology Imaging: Impressions Chest X-Ray 05/27/18 08:40 CONCLUSION: No acute cardiopulmonary disease EKG interpretations - EKG EKG shows: sinus rhythm (EKGs are sinus rhythm with right bundle branch block. No significant ST segment depressions or elevations.) Caprini VTE Risk Assessment Caprini VTE Risk Assessment: No/Low Risk (score <= 1) Caprini Risk Assessment Model: Point Value = 1 Point Value = 2 Point Value = 3 Point Value = 5 Age 41-60 Minor surgery BMI > 25 kg/m2 Swollen legs Varicose veins or History of unexplained or recurrent spontaneous Oral contraceptives or hormone replacement Sepsis (< 1 month) Serious lung disease, including pneumonia (< 1 month) Abnormal pulmonary function Acute myocardial infarction Congestive heart failure (< 1 month) History of inflammatory bowel disease Medical patient at bed rest Age 61-74 Arthroscopic surgery Major open surgery (> 45 min) Laparoscopic surgery (> 45 min) Malignancy Confined to bed (> 72 hours) Immobilizing plaster cast Central venous access Age >= 75 History of VTE Family history of VTE Factor V Leiden Prothrombin [id number] Lupus anticoagulant Anticardiolipin antibodies Elevated serum homocysteine Heparin-induced thrombocytopenia Other congenital or acquired thrombophilia Stroke (< 1 month) Elective arthroplasty Hip, pelvis, or leg fracture Acute spinal cord injury (< 1 month) Prophylaxis Regimen: Total Risk Factor Score Risk Level Prophylaxis Regimen 0-1 Low Early ambulation 2 Moderate Order ONE of the following: *Sequential Compression Device (SCD) *Heparin 5000 units SQ BID 3-4 Higher Order ONE of the following medications: *Heparin 5000 units SQ TID *Enoxaparin/Lovenox 40 mg SQ daily (WT < 150 kg, CrCl > 30 mL/min) *Enoxaparin/Lovenox 30 mg SQ daily (WT < 150 kg, CrCl > 10-29 mL/min) *Enoxaparin/Lovenox 30 mg SQ BID (WT < 150 kg, CrCl > 30 mL/min) AND/OR *Sequential Compression Device (SCD) 5 or more Highest Order ONE of the following medications: *Heparin 5000 units SQ TID (Preferred with Epidurals) *Enoxaparin/Lovenox 40 mg SQ daily (WT < 150 kg, CrCl > 30 mL/min) *Enoxaparin/Lovenox 30 mg SQ daily (WT < 150 kg, CrCl > 10-29 mL/min) *Enoxaparin/Lovenox 30 mg SQ BID (WT < 150 kg, CrCl > 30 mL/min) AND *Sequential Compression Device (SCD) Assessment and Plan - Assessment (1) Chest pain Code(s): R07.9 - Chest pain, unspecified Status: Acute - Plan * Chest pain: Patient will have serial cardiac enzymes and EKGs for ruling out purposes and will be seen by Dr. Murphy of cardiology and chest pain center. Patient likely to undergo a Anirudh protocol ETT and will be discharged home if stress test is nonischemic with instructions to follow-up with her PCP. Return to ED for interval issues. Patient is stable at this time. She is agreeable to this plan. (1) Chest pain Qualifiers: Chest pain type: unspecified Qualified Code(s): R07.9 - Chest pain, unspecified
[2018-05-27 11:12] LABS: Creatine Kinase 81 U/L (26-192)
[2018-05-27 11:45] VITALS: BP 138/65; PULSE 86; RESP 18; TEMP 98.6; O2SAT 96
--- NOTE | 2018-05-27 12:42 | TR ---
Date Performed: 05/27/2018 Time Performed: 11:12:57 DOCTOR: Daryl Murphy DRUG LIST: CLINICAL HISTORY: REASON FOR TEST: Chest pain REASON FOR ENDING: OBSERVATION: CONCLUSION: GUDELIA PROTOCOL. HER CHEST DISCOMFORT IMPROVED WITH TREADMILL. TEST STOPPED AFTER EXC EEDING GOAL HR SECONDARY TO SOB AND LEG FATIGUE.Maximum BW=236 % Max HR Achieved=90.0% Maximum UB=293 /88 Total Exercise Time=4:01 COMMENTS: No significant EKG changes, no symptoms and reasonable exercise capacity in view of un derlying conditions. Low probability of significant ischemia as cause of current presentation.
--- NOTE | 2018-05-27 12:43 | ECG ---
Date Performed: 05/27/2018 Time Performed: 10:42:27 PTAGE: 52 years EKG: Sinus rhythm RIGHT BUNDLE BRANCH BLOCK ABNORMAL ECG INTERPRETATION BASED ON A DEFAULT AGE OF 40 YEARS NO SIGNIFIC ANT CHANGES PREVIOUS TRACING : 04/12/2017 20.37 DOCTOR: Daryl Murphy Interpretating Date/Time 05/27/2018 12:41:46
--- NOTE | 2018-05-27 12:50 | ECG ---
Date Performed: 05/27/2018 Time Performed: 07:48:34 PTAGE: 52 years EKG: Sinus rhythm RIGHT BUNDLE BRANCH BLOCK ABNORMAL ECG NO SIG CHANGES PREVIOUS TRACING : 04/12/2017 20.37 DOCTOR: Daryl Murphy Interpretating Date/Time 05/27/2018 12:49:03
[2018-05-27 12:54] LABS: Activated Partial Thrombo Time 27.5 sec (23.4-31.7); Prothrombin Time 9.9 sec (9.8-11.6)
--- NOTE | 2018-05-27 13:12 | P.PNCA ---
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 Her evaluation is as reported by Dr. Sterling and the physician zipper machine operator and will not be repeated at length. Additional information obtained during my evaluation included a history of sarcoidosis (but somewhat nebulous) and a history of thyroidectomy on thyroid replacement. She was recently noted to have a TSH level that was quite low and has been in the process of readjusting her thyroid replacement therapy. During discussion she does indicate that she has noticed some fine tremor and possibly some visual changes that may be associated with hyperthyroid levels. Otherwise H&P is recorded is appropriate. Medications and Allergies Active Medications: Active Medications Acetaminophen (Tylenol) 500 mg PO Q4H PRN PRN Reason: HEADACHE Acetaminophen (Tylenol) 500 mg PO Q6H PRN PRN Reason: pain scale 1-5 Hydrocodone Bitart/Acetaminophen (Keo 7.5/325) 1 tab PO Q6H PRN PRN Reason: pain scale 6-10 Clonidine HCl (Catapres) 0.1 mg PO Q6H PRN PRN Reason: SBP >165 OR DBP > 110 Ondansetron HCl (Zofran Inj) 4 mg IV.PUSH Q6H PRN PRN Reason: NAUSEA Pantoprazole Sodium (Protonix) 40 mg PO DAILY FELIX Sodium Chloride (Ns Flush) 2 ml IV.FLUSH BID FELIX Sodium Chloride (Ns Flush) 2 ml IV.FLUSH PRN PRN PRN Reason: FLUSH AFTER USING IV ACCESS Allergies Allergy/AdvReac Type Severity Reaction Status Date / Time tramadol Allergy Intermediate Seizures Verified 05/27/18 09:28 Home Medications Medication Instructions Recorded Confirmed Type albuterol sulfate [Ventolin HFA] 2 puff INHALATION Q6H PRN 05/27/18 05/27/18 History citalopram 20 mg PO DAILY 05/27/18 05/27/18 History levothyroxine 88 mcg PO DAILY 05/27/18 05/27/18 History liothyronine 5 mcg PO DAILY 05/27/18 05/27/18 History metoprolol tartrate 25 mg PO DAILY 05/27/18 05/27/18 History salmeterol 1 inh INHALATION BID 05/27/18 05/27/18 History topiramate 50 mg PO BID 05/27/18 05/27/18 History Physical Exam Vital signs: Vital Signs 05/27/18 07:32 05/27/18 07:41 05/27/18 08:00 Temperature 98.2 F Pulse Rate 85 80 73 Respiratory Rate 17 25 H 16 Blood Pressure 166/102 H 175/79 H 159/70 H Pulse Oximetry 98 97 98 05/27/18 08:45 05/27/18 09:00 05/27/18 11:43 Temperature 98.6 F Pulse Rate 73 86 Respiratory Rate 15 18 Blood Pressure 139/61 138/65 Pulse Oximetry 98 98 96 Intake & Output 05/26/18 05/27/18 05/27/18 18:59 06:59 18:59 Weight 107.048 kg Narrative: Well-nourished well-developed somewhat obese lady in no acute distress Skin warm and dry with a fine texture Head normocephalic atraumatic but hair somewhat finer than would be expected Eyes PERRLA EOMI there is no lid lag or proptosis Neck supple well-healed thyroidectomy scar no JVD masses nodes or bruits Chest is clear to auscultation with no rales wheezes or rhonchi Cardiovascular regular sinus rhythm no gallops rubs or murmurs Neurologic reveals hyperreflexia of both upper and lower extremity and a fine tremor demonstrated hands held fingers extended. Results 05/27/18 08:00 05/27/18 08:00 Cardiac Enzymes 05/27/18 05/27/18 05/27/18 Range/Units 08:00 08:00 08:00 AST 15 (15-37) U/L CK-MB (CK-2) Less than 1.0 (0.5-3.6) ng/mL Troponin I Less than 0.02 L (0.02-0.05) ng/mL B-Natriuretic Peptide 21 (0-100) pg/mL 05/27/18 Range/Units 10:28 AST (15-37) U/L CK-MB (CK-2) (0.5-3.6) ng/mL Troponin I Less than 0.02 L (0.02-0.05) ng/mL B-Natriuretic Peptide (0-100) pg/mL Coagulation 05/27/18 05/27/18 Range/Units 08:00 12:22 PT 9.9 (9.8-11.6) sec APTT 27.5 (23.4-31.7) sec B-Natriuretic Peptide 21 (0-100) pg/mL CBC 05/27/18 Range/Units 08:00 WBC 6.7 (4.0-11.0) th/mm3 RBC 4.51 (4.00-5.30) mil/mm3 Hgb 13.2 (11.6-15.3) gm/dL Hct 40.5 (35.0-46.0) % Plt Count 300 (150-450) th/mm3 Neut # (Auto) 3.8 (1.8-7.7) th/mm3 Lymph # (Auto) 2.5 (1.0-4.8) th/mm3 [place] # (Auto) 0.3 (0.0-0.9) th/mm3 Eos # (Auto) 0.1 (0.0-0.4) th/mm3 Baso # (Auto) 0.1 (0.0-0.2) th/mm3 Comprehensive Metabolic Panel 05/27/18 Range/Units 08:00 Sodium 142 (136-145) meq/L Potassium 4.2 (3.5-5.1) meq/L Chloride 110 H (98-107) meq/L Carbon Dioxide 24.7 (21.0-32.0) meq/L BUN 8 (7-18) mg/dL Creatinine 0.76 (0.50-1.00) mg/dL Calcium 8.3 L (8.5-10.1) mg/dL AST 15 (15-37) U/L ALT 23 (10-53) U/L Alkaline Phosphatase 99 (45-117) U/L Total Protein 8.3 H (6.4-8.2) g/dL Albumin 3.5 (3.4-5.0) g/dL Intake and Output 05/26/18 05/27/18 05/27/18 22:59 06:59 14:59 Other: Weight 107.048 kg Patient Weight 05/28/18 06:59 Weight 107.048 kg - Imaging and Cardiology Imaging: Impressions Chest X-Ray 05/27/18 08:40 CONCLUSION: No acute cardiopulmonary disease Assessment and Plan - Assessment (1) Chest pain Code(s): R07.9 - Chest pain, unspecified Status: Acute - Plan * Chest pain: Patient will have serial cardiac enzymes and EKGs for ruling out purposes and will be seen by Dr. Murphy of cardiology and chest pain center. Patient likely to undergo a Anirudh protocol ETT and will be discharged home if stress test is nonischemic with instructions to follow-up with her PCP. Return to ED for interval issues. Patient is stable at this time. She is agreeable to this plan. Patient is ruled out using chest pain center protocol and had a stress test which showed no ischemic changes and was not associated with symptoms. Post stress test her pain is actually diminished somewhat. She has good follow-up in the community and will follow up with her primary care physician with particular attention to further adjusting her thyroid levels. (1) Chest pain Qualifiers: Chest pain type: unspecified Qualified Code(s): R07.9 - Chest pain, unspecified
== END 2018-05-27 14:18 | disposition home or self-care (01) ==
LOC: NEPC 07:30 → NEDA 07:30 → NEPFCDU 10:25
PROVIDERS: ADMIT Internal Medicine Interventional Cardiology; ATTEND Internal Medicine Interventional Cardiology
CPT/HCPCS: 71010; 71045; 80053; 82550; 82552; 83520; 83690; 83880; 84484; 85025; 85610; 85730; 93005; 93017; 99285; G0378